=== PATIENT | male | born 1975 | race Caucasian/White ===

== ENCOUNTER → 2020-06-28 | Emergency (ER) | payer OTHER ==
[2020-06-29 12:34] LABS: SARS-CoV-2 MS2 Positive; SARS-CoV-2 N Gene Negative; SARS-CoV-2 S Gene Negative; SARS-CoV-2 by NAA Not Detected (NotDetected); SARS-CoV-2 orf1ab Negative
== END ==
LOC: BURERS 09:41
DX: B34.9 Viral infection, unspecified (principal); Z20.828 Contact with and (suspected) exposure to other viral communicable diseases
CPT/HCPCS: 87635; 99283; U0003